=== PATIENT | female | born 1990 | race Caucasian/White ===

== ENCOUNTER 2020-01-12 15:00 | Emergency (ER) | payer SELFPAY ==
--- NOTE | 2020-01-12 17:47 | RAD ---
LEFT HAND THREE VIEWS: Date: 01-12-2020 FINDINGS: No fracture or dislocation was seen. The carpals appear normal. The joints appear normal. IMPRESSION: No acute findings. POS: HOME
--- NOTE | 2020-01-12 18:20 | RAD ---
LEFT WRIST THREE VIEWS: 01/12/20 No acute fracture was seen. The distal radius and ulna appeared intact, and the carpal relationships seem normal. IMPRESSION: No acute findings. POS: HOME
== END 2020-01-12 16:05 | disposition home or self-care (01) ==
LOC: BURERS 15:00
DX: S52.602A Unspecified fracture of lower end of left ulna, initial encounter for closed fracture (principal); F41.9 Anxiety disorder, unspecified; W17.89XA Other fall from one level to another, initial encounter

== ENCOUNTER 2021-03-05 23:57 | Emergency (ER) | payer OTHER, SELFPAY | END 2021-03-06 00:38 | disposition home or self-care (01) | LOC: BURERS 23:57 | DX: S52.612A Displaced fracture of left ulna styloid process, initial encounter for closed fracture (principal); S52.92XA Unspecified fracture of left forearm, initial encounter for closed fracture; V89.2XXA Person injured in unspecified motor-vehicle accident, traffic, initial encounter | CPT/HCPCS: 25605 ==

== ENCOUNTER 2022-10-08 10:03 | Emergency (ER) | payer OTHER, SELFPAY ==
[2022-10-08] MEDS ORDERED: HYDROcodone/Acetaminophen 5/325 mg Tablet ONE (10:51)
== END 2022-10-08 11:52 | disposition home or self-care (01) ==
LOC: BURERS 10:03 → EEVIPCON 10:03 → BURERS 11:52
DX: S00.11XA Contusion of right eyelid and periocular area, initial encounter (principal); Y04.8XXA Assault by other bodily force, initial encounter
CPT/HCPCS: 70450

== ENCOUNTER 2023-08-07 17:27 | Emergency (ER) | payer BC, OTHER | END 2023-08-07 18:35 | disposition home or self-care (01) | LOC: BURERS 17:27 | DX: H92.02 Otalgia, left ear (principal); F17.210 Nicotine dependence, cigarettes, uncomplicated | CPT/HCPCS: 82274; 99283 ==